=== PATIENT | male | born 1950 | race Native Hawaiian/Other Pacific Islander ===

== ENCOUNTER 2017-10-23 08:17 | Emergency (ER) | payer OTHER, MEDICARE ==
[2017-10-23 08:23] VITALS: O2SAT 99
--- NOTE | 2017-10-23 08:50 | C.PDOC ---
History Of Present Illness 67 y/o male with no hx of HTN, presents to ED for evaluation. He states he "did not feel right" after waking up today at 6am. Pt states he cannot describe his past symptoms but they are currently gone. He states his blood pressure was elevated at 180/90. Denies headache, SOB, visual changes, fever or sweating. Time Seen by Provider: 10/23/17 08:26 Chief Complaint (Nursing): Dizziness/Lightheaded History Per: Patient History/Exam Limitations: no limitations Onset/Duration Of Symptoms: Hrs Current Symptoms Are (Timing): Still Present Activity At Onset Of Symptoms: Lying Associated Symptoms Preceding Syncopal Episode: denies: Lightheadedness, Worse With Standing, Vertigo Seizure Or Post-ictal Symptoms: None Possible Causative Factor(s): denies: Vertigo, Lightheaded W/Standing, Lightheaded W/Change In Head Position, Lightheaded W/Exertion Fall Associated With With Symptoms: No Recent travel outside of the [place]: No - Symptoms Of CVA Associated Symptoms: denies: Impaired Speech, Seizure Activity, New Vision Deficit(Left), New Vision Deficit(Right), Decreased Ability To Walk, New Confusion Recent Head Trauma: No Past Medical History Reviewed: Historical Data, Nursing Documentation, Vital Signs Vital Signs: Last Vital Signs Temp 97.9 F 10/23/17 08:20 Pulse 44 L 10/23/17 10:27 Resp 18 10/23/17 10:27 BP 118/70 10/23/17 10:27 Pulse Ox 99 10/23/17 10:27 - Medical History PMH: HTN, Kidney Stones, Chronic Kidney Disease Surgical History: No Surg Hx Family History: States: Unknown Family Hx - Social History Hx Alcohol Use: Yes Hx Substance Use: No - Immunization History Hx Tetanus Toxoid Vaccination: No Hx Influenza Vaccination: No Hx Pneumococcal Vaccination: No Review Of Systems Constitutional: Positive for: Other (Did not feel right; Elevated blood pressure at 180/90). Negative for: Fever, Chills, Sweats Eyes: Negative for: Vision Change Respiratory: Negative for: Shortness of Breath Neurological: Negative for: Weakness, Numbness, Change in Speech, Confusion, Seizures, Headache Physical Exam - Physical Exam Appears: Well, Non-toxic, No Acute Distress Skin: Normal Color, Warm, Dry Head: Atraumatic, Normacephalic Eye(s): bilateral: Normal Inspection Oral Mucosa: Moist Neck: Supple Chest: Symmetrical, No Tenderness Cardiovascular: Rhythm Regular Respiratory: Normal Breath Sounds, No Rales, No Rhonchi, No Wheezing Gastrointestinal/Abdominal: Soft, No Tenderness, No Distention Extremity: Bilateral: Normal Color And Temperature Neurological/Psych: Oriented x3, Normal Speech, Normal Cognition, Other (No focal deficits) Gait: Steady ED Course And Treatment - Laboratory Results Result Diagrams: 10/23/17 09:07 10/23/17 09:07 Lab Interpretation: Abnormal (BUN 30 Cr 1.6, mild renal insufficiency) ECG: Interpreted By Me ECG Rhythm: Sinus Bradycardia, 1st Degree HB O2 Sat by Pulse Oximetry: 99 (RA) Pulse Ox Interpretation: Normal - Radiology CXR: Viewed By Me, Read By Radiologist CXR Interpretation: Yes: No Acute Disease - Other Rad Chest X-Ray X-Ray: Viewed By Me, Read By Radiologist Interpretation: PROCEDURE: CHEST RADIOGRAPH, 1 VIEW. HISTORY: SOB. COMPARISON: None available. FINDINGS: LUNGS: Clear. PLEURA: No pneumothorax or pleural fluid seen. CARDIOVASCULAR: Normal. OSSEOUS STRUCTURES: No significant abnormalities. VISUALIZED UPPER ABDOMEN: Normal. OTHER FINDINGS: None. IMPRESSION: No active disease. Progress Note: Administered Catapres. Ordered EKG, CXR, blood work and urinalysis. Reevaluation Time: 11:25 Reassessment Condition: Improved (BP 118/70) Disposition Counseled Patient/Family Regarding: Studies Performed, Diagnosis, Need For Followup, Rx Given - Disposition Referrals: Rosa Worthington MD [Staff Provider] - Disposition: HOME/ ROUTINE Disposition Time: 11:28 Condition: IMPROVED Prescriptions: Lisinopril [Zestril] 2.5 mg PO DAILY #30 tab Instructions: Hypertension (ED) Forms: [employer] (Belarusian) - Clinical Impression Clinical Impression: Hypertension, Renal insufficiency, mild - Scribe Statement The provider has reviewed the documentation as recorded by the Anishaibivonne Lama All medical record entries made by the Scribivonne were at my direction and personally dictated by me. I have reviewed the chart and agree that the record accurately reflects my personal performance of the history, physical exam, medical decision making, and the department course for this patient. I have also personally directed, reviewed, and agree with the discharge instructions and disposition.
[2017-10-23 09:12] LABS: BASO % 0.8 % (0.0-2.0); EOS # 0.1 K/uL (0.0-0.7); EOS % 2.3 % (0.0-4.0); HEMOGLOBIN 13.3 g/dL (12.0-18.0); LYMPH # 1.2 K/uL (1.0-4.3); LYMPH % 21.3 % (20.0-40.0); MEAN CELL VOLUME 92.8 fL (80.0-94.0); MEAN CORPUSCULAR HEMOGLOBIN 30.5 pg (27.0-31.0); MEAN CORPUSCULAR HGB CONC 32.8 g/dL (33.0-37.0); MEAN PLATELET VOLUME 7.9 fL (7.2-11.7); MONO # 0.4 K/uL (0.0-0.8); MONO % 6.8 % (0.0-10.0); NEUT # 3.9 K/uL (1.8-7.0); NEUT % 68.8 % (50.0-75.0); RBC 4.38 Mil/uL (4.40-5.90); RED CELL DISTRIBUTION WIDTH 13.8 % (11.5-14.5); WHITE BLOOD COUNT 5.6 K/uL (4.8-10.8)
[2017-10-23 09:28] LABS: URINE BACTERIA RARE (<OCC); URINE BILIRUBIN NEGATIVE (NEGATIVE); URINE BLOOD 1+ (NEGATIVE); URINE CLARITY Clear (Clear); URINE COLOR Yellow (YELLOW); URINE GLUCOSE (UA) NORMAL (Normal); URINE LEUKOCYTE ESTERASE TRACE Leu/uL (Negative); URINE NITRATE NEGATIVE (NEGATIVE); URINE PROTEIN NEGATIVE (NEGATIVE); URINE URIC ACID CRYSTALS OCC /hpf (<OCC); URINE UROBILINOGEN NORMAL mg/dL (0.2-1.0)
[2017-10-23 09:30] LABS: ALB/GLOB RATIO 1.1 (1.0-2.1); ALBUMIN 4.2 g/dL (3.5-5.0); ALT/SGPT 24 U/L (21-72); AST/SGOT 30 U/L (17-59); BLOOD UREA NITROGEN 30 mg/dL (9-20); CALCIUM 9.2 mg/dl (8.6-10.4); GFR AFRICAN-AMERICAN 52; GFR NON-AFRICAN AMERICAN 43
--- NOTE | 2017-10-23 09:47 | RAD ---
PROCEDURE: CHEST RADIOGRAPH, 1 VIEW HISTORY: SOB COMPARISON: None available. FINDINGS: LUNGS: Clear. PLEURA: No pneumothorax or pleural fluid seen. CARDIOVASCULAR: Normal. OSSEOUS STRUCTURES: No significant abnormalities. VISUALIZED UPPER ABDOMEN: Normal. OTHER FINDINGS: None. IMPRESSION: No active disease.
[2017-10-23 10:27] VITALS: PULSE 44; RESP 18
[2017-10-23 11:48] VITALS: BP 121/74; TEMP 97
--- NOTE | 2017-10-25 23:38 | CARD ---
APPROVED REPORT EKG Measurement Heart [id number] <Conclusion> Sinus bradycardia with 1st degree AV block Otherwise normal ECG
== END 2017-10-23 11:48 | disposition home or self-care (01) ==
LOC: C.ER 08:17
DX: I10 Essential (primary) hypertension (principal); N28.9 Disorder of kidney and ureter, unspecified

== ENCOUNTER 2018-01-22 07:40 | Emergency (ER) | payer OTHER, MEDICARE ==
[2018-01-22 07:53] VITALS: BMI 24.1
[2018-01-22 08:01] VITALS: O2SAT 99
--- NOTE | 2018-01-22 08:48 | C.PDOC ---
History Of Present Illness 67 year old male presents to the ED for evaluation of bilateral knee pain ( right greater than left) which began 2-3 weeks ago. He notes the pain increases with use of the areas. He has not taken anything for pain. Patient states he was told a while ago that he has "mild arthritis." Patient denies falls, trauma/ injury to the area. Chief Complaint (Nursing): Lower Extremity Problem/Injury History Per: Patient History/Exam Limitations: no limitations Onset/Duration Of Symptoms: Other (2-3 weeks ) Current Symptoms Are (Timing): Still Present Additional History Per: Patient - Knee Description Of Injury: denies: Fell, Struck With Object, Struck Against Object, Twisted Past Medical History Reviewed: Historical Data, Nursing Documentation, Vital Signs Vital Signs: Last Vital Signs Temp 98.2 F 01/22/18 08:58 Pulse 55 L 01/22/18 08:58 Resp 16 01/22/18 08:58 BP 138/78 01/22/18 08:58 Pulse Ox 99 01/22/18 12:08 - Medical History PMH: HTN, Kidney Stones, Chronic Kidney Disease Surgical History: No Surg Hx Family History: States: Unknown Family Hx - Social History Hx Alcohol Use: Yes Hx Substance Use: No - Immunization History Hx Tetanus Toxoid Vaccination: No Hx Influenza Vaccination: No Hx Pneumococcal Vaccination: No Review Of Systems Musculoskeletal: Positive for: Other (bilateral knee pain ) Physical Exam - Physical Exam Appears: Non-toxic, No Acute Distress Skin: Normal Color, Warm, Dry Head: Atraumatic, Normacephalic Eye(s): bilateral: Normal Inspection Oral Mucosa: Moist Extremity: Normal ROM, No Tenderness, Capillary Refill (less than 2 seconds ), No Deformity, No Swelling, No Other (pain with valgus or varus stretch) Neurological/Psych: Oriented x3, Normal Speech, Normal Cognition Gait: Steady ED Course And Treatment O2 Sat by Pulse Oximetry: 99 (on RA) Pulse Ox Interpretation: Normal - Other Rad knee XR X-Ray: Interpreted by Me, Viewed By Me, Read By Radiologist Interpretation: PROCEDURE: Bilateral Knee Radiographs. HISTORY: b/l knee pain. COMPARISON: None available. TECHNIQUE: Three views of each knee have been submitted for interpretation. FINDINGS: No acute fracture or dislocation is identified bilaterally. Symmetric medial and lateral femorotibial compartment joint space narrowing and cortical sclerosis identified with limited osteophyte development, compatible osteoarthritis. Nearly identical change identified in the bilateral patellofemoral articulations as well. No destructive bony lesion appreciable. Small bilateral suprapatellar bursa effusions are suggested and vascular calcifications are seen in the posterior knee soft tissues as well as distal thigh soft tissues bilaterally. IMPRESSION : Advanced tricompartmental osteoarthritis as discussed above. No acute fracture, subluxation or dislocation. Medical Decision Making Medical Decision Making: Impression: 67 year old male Plan: * bilateral knee XR * reassess and disposition Progress: B/L knee XR ordered and reviewed. On reassessment, patient is resting comfortably, showing no signs of distress and is stable for discharge. Patient is advised to follow up with her PMD, Dr. Worthington, within 1-2 days for further evaluation and/or return to the ED if symptoms persist or worsen. Disposition - Disposition Referrals: Rosa Worthington MD [Staff Provider] - Disposition: HOME/ ROUTINE Disposition Time: 08:30 Condition: GOOD Additional Instructions: Thank you for letting us take care of you today. The emergency medical care you received today was directed at your acute symptoms. If you were prescribed any medication, please fill it and take as directed. It may take several days for your symptoms to resolve. Return to the Emergency Department if your symptoms worsen, do not improve, or if you have any other problems. Please contact your doctor or call one of the physicians/clinics you have been referred to that are listed on the Patient Visit Information form that is included in your discharge packet. Bring any paperwork you were given at discharge with you along with any medications you are taking to your follow up visit. Our treatment cannot replace ongoing medical care by a primary care provider (PCP) outside of the emergency department. Thank you for allowing the [facility] team to be part of your care today. Follow up with your primary doctor in 2 days for re-evaluation and further management. Prescriptions: Ibuprofen [Motrin Tab] 800 mg PO Q6 PRN #20 tab PRN Reason: Pain, Moderate (4-7) Instructions: Osteoarthritis (DC) Forms: [employer] (Slovenian) - Clinical Impression Clinical Impression: Osteoarthritis - Scribe Statement The provider has reviewed the documentation as recorded by the Scribe (Nargis Jones) Provider Attestation: All medical record entries made by the Scribe were at my direction and personally dictated by me. I have reviewed the chart and agree that the record accurately reflects my personal performance of the history, physical exam, medical decision making, and the department course for this patient. I have also personally directed, reviewed, and agree with the discharge instructions and disposition.
[2018-01-22 08:59] VITALS: BP 138/78; PULSE 55; RESP 16; TEMP 98.2
--- NOTE | 2018-01-22 11:12 | RAD ---
PROCEDURE: Bilateral Knee Radiographs. HISTORY: b/l knee pain COMPARISON: None available. TECHNIQUE: Three views of each knee have been submitted for interpretation. FINDINGS: No acute fracture or dislocation is identified bilaterally. Symmetric medial and lateral femorotibial compartment joint space narrowing and cortical sclerosis identified with limited osteophyte development, compatible osteoarthritis. Nearly identical change identified in the bilateral patellofemoral articulations as well. No destructive bony lesion appreciable. Small bilateral suprapatellar bursa effusions are suggested and vascular calcifications are seen in the posterior knee soft tissues as well as distal thigh soft tissues bilaterally. IMPRESSION: Advanced tricompartmental osteoarthritis as discussed above. No acute fracture, subluxation or dislocation.
== END 2018-01-22 08:58 | disposition home or self-care (01) ==
LOC: C.ER 07:40
DX: M17.9 Osteoarthritis of knee, unspecified (principal); I12.9 Hypertensive chronic kidney disease with stage 1 through stage 4 chronic kidney disease, or unspecified chronic kidney disease; N18.9 Chronic kidney disease, unspecified

== ENCOUNTER 2018-09-22 15:27 | Emergency (ER) | payer OTHER ==
[2018-09-22 15:27] VITALS: BMI 24.1
--- NOTE | 2018-09-22 15:48 | C.PDOC ---
History Of Present Illness 68 y/o male with PMH of HTN, 1st degree AV block presents to the ED for evaluation of intermittent dizziness yesterday. Pt states that he had moments of lightheadedness yesterday everytime he took his glasses on and off. Recently got new glasses. No episodes of dizziness/lightheadedness today when he wore his new glasses. States he has not had any water to drink in 2 days. PMD changed his lisinopril dose to half 3 weeks ago secondary to hypotension. Denies vertigo, fevers, chills, chest pain, palpitations, headache, vision changes, SOB, urinary symptoms, back pain, abdominal pain, numbness, paresthesias, weakness, or any other associated complaints. Time Seen by Provider: 09/22/18 15:35 Chief Complaint (Nursing): Dizziness/Lightheaded History Per: Patient History/Exam Limitations: no limitations Past Medical History Reviewed: Historical Data, Nursing Documentation, Vital Signs Vital Signs: Last Vital Signs Temp 98 F 09/22/18 15:30 Pulse 56 L 09/22/18 15:30 Resp 18 09/22/18 15:30 BP 174/76 H 09/22/18 15:30 Pulse Ox 96 09/22/18 15:30 - Medical History PMH: HTN, Kidney Stones, Chronic Kidney Disease Family History: States: Unknown Family Hx - Social History Hx Alcohol Use: No Hx Substance Use: No - Immunization History Hx Tetanus Toxoid Vaccination: No Hx Influenza Vaccination: No Hx Pneumococcal Vaccination: No Review Of Systems Except As Marked, All Systems Reviewed And Found Negative. Constitutional: Negative for: Fever, Chills Eyes: Negative for: Vision Change ENT: Negative for: Ear Pain, Nose Congestion, Throat Pain Cardiovascular: Positive for: Light Headedness. Negative for: Chest Pain, Palpitations, Orthopnea Respiratory: Negative for: Cough, Shortness of Breath, Hemoptysis Gastrointestinal: Negative for: Nausea, Vomiting, Abdominal Pain Genitourinary: Negative for: Dysuria, Frequency, Hematuria, Penile Discharge Musculoskeletal: Negative for: Neck Pain, Shoulder Pain, Back Pain Neurological: Negative for: Weakness, Numbness, Seizures, Headache Physical Exam - Physical Exam Appears: Well, Non-toxic, No Acute Distress Skin: Normal Color, Warm, Dry Head: Atraumatic, Normacephalic, No Tenderness Eye(s): bilateral: Normal Inspection, PERRL, EOMI Ear(s): Bilateral: Normal Nose: Normal Oral Mucosa: Dry Throat: Normal Neck: Normal, Normal ROM Lymphatic: Normal Exam Chest: Symmetrical, No Deformity, No Tenderness Cardiovascular: Rhythm Regular Respiratory: Normal Breath Sounds Gastrointestinal/Abdominal: Normal Exam, Bowel Sounds, Soft, No Tenderness Back: Normal Inspection, No CVA Tenderness Extremity: Normal ROM, No Tenderness, No Pedal Edema, No Calf Tenderness, Capillary Refill (<2s), No Deformity, No Swelling Extremity: Bilateral: Atraumatic, No Pedal Edema, Normal Color And Temperature, Normal ROM Pulses: Left Radial: Normal, Right Radial: Normal Neurological/Psych: Oriented x3, Normal Speech, Normal Cognition, Normal Cranial Nerves, Cerebellar Signs (normal), Normal Motor, Normal Sensation Gait: Steady ED Course And Treatment - Laboratory Results Result Diagrams: 09/22/18 16:27 09/22/18 16:27 ECG: Viewed By Me ECG Rhythm: Sinus Bradycardia, 1st Degree HB ECG Interpretation: No Acute Changes Interpretation Of ECG: Rate 58; Sinus loren; 1st degree AV block; no STEMI or T wave inversions. Compared to 10/23/17, looks similar Rate From EC O2 Sat by Pulse Oximetry: 98 Pulse Ox Interpretation: Normal - Radiology CXR: Viewed By Me (Interpreted by Dr. Vicente) CXR Interpretation: Yes: No Acute Disease - CT Scan/US Head CT Other Rad Studies (CT/US): Read By Radiologist CT/US Interpretation: FINDINGS: HEMORRHAGE: No acute parenchymal, subarachnoid or extra-axial hemorrhage. BRAIN: Suspect minimal chronic periventricular white matter ischemic changes. No evidence of large parenchymal nor extra-axial mass or collection seen on this noncontrast exam.. Moderate generalized volume loss. VENTRICLES: No obstructive hydrocephalus. CALVARIUM: There are no acute calvarial fracture seen. Few small lucency scattered about the inner table of the calvarium few of which probably represent arachnoid granulations and others venous lakes or vascular grooves. PARANASAL SINUSES: Unremarkable as visualized. No significant inflammatory changes. MASTOID AIR CELLS: Unremarkable as visualized. No inflammatory changes. OTHER FINDINGS: None. IMPRESSION: No acute intracranial hemorrhage. Suspect minor chronic periventricular white matter ischemic changes. Moderate generalized volume loss. Medical Decision Making Medical Decision Making: Initial Plan: * CBC, CMP * Mg, Phos * Troponin * Coags * TSH, T3, T4 * UA, culture * Orthostatics * CXR * EKG * Head CT * IVF Patient was asymptomatic on arrival and remained asymptomatic throughout visit. No episodes of dizziness or lightheadedness, headache, vision changes. Ambulated with steady gait to and from bathroom. Patient states he is hungry, requesting discharge home. Will treat patient for UTI and recommend increasing fluids with followup with PMD tomorrow. Diagnostic testing results and plan of care discussed with patient, and strict instructions given regarding prescriptions, importance of follow up, and signs to return to Emergency Department, to include headache, vision changes, dizziness, chest pain, or any other new/worsening symptoms. Patient verbalizes understanding of discussion. Patient A&Ox3, ambulating with steady gait, stable for discharge home. Disposition - Disposition Referrals: Tonio Romo MD [Staff Provider] - Kamran Garcia MD [Staff Provider] - Disposition: HOME/ ROUTINE Disposition Time: 19:00 Condition: GOOD Additional Instructions: Take antibiotics every 12 hours for 7 days Increase fluids Followup with urology within 2 days Followup with eye doctor within 2 days Followup with neurology within 2 days Followup with primary doctor within 2 days Prescriptions: Sulfamethoxazole/Trimethoprim [Bactrim DS 800 mg-160 mg] 1 tab PO Q12H #14 tab Instructions: Urinary Tract Infections in Adults Forms: General Discharge Instructions, [facility] (Urdu), Work Excuse - Clinical Impression Clinical Impression: UTI (urinary tract infection)
[2018-09-22] MEDS ORDERED: Sodium Chloride 0.9% 1,000 ML IV ONE (16:05)
[2018-09-22] MEDS ORDERED: Sodium Chloride 0.9% 1,000 ML ONE (16:14)
[2018-09-22 16:31] LABS: BASO # 0.1 K/uL (0.0-0.2); BASO % 0.7 % (0.0-2.0); EOS # 0.1 K/uL (0.0-0.7); EOS % 1.5 % (0.0-4.0); HEMOGLOBIN 13.1 g/dL (12.0-18.0); LYMPH # 1.5 K/uL (1.0-4.3); LYMPH % 19.6 % (20.0-40.0); MEAN CELL VOLUME 92.6 fL (80.0-94.0); MEAN CORPUSCULAR HEMOGLOBIN 30.4 pg (27.0-31.0); MEAN CORPUSCULAR HGB CONC 32.8 g/dL (33.0-37.0); MEAN PLATELET VOLUME 7.6 fL (7.2-11.7); MONO # 0.5 K/uL (0.0-0.8); MONO % 7.1 % (0.0-10.0); NEUT # 5.4 K/uL (1.8-7.0); NEUT % 71.1 % (50.0-75.0); RBC 4.31 Mil/uL (4.40-5.90); RED CELL DISTRIBUTION WIDTH 13.8 % (11.5-14.5); WHITE BLOOD COUNT 7.6 K/uL (4.8-10.8)
[2018-09-22 16:47] LABS: ALB/GLOB RATIO 1.3 (1.0-2.1); ALBUMIN 4.2 g/dL (3.5-5.0); ALT/SGPT 22 U/L (21-72); AST/SGOT 32 U/L (17-59); BLOOD UREA NITROGEN 27 mg/dL (9-20); CALCIUM 9.1 mg/dl (8.6-10.4); GFR NON-AFRICAN AMERICAN 50; PROTHROMBIN TIME 11.3 SECONDS (9.7-12.2)
--- NOTE | 2018-09-22 17:07 | CT ---
Date of service: 09/22/2018 PROCEDURE: CT HEAD WITHOUT CONTRAST. HISTORY: Lightheadedness COMPARISON: None available. TECHNIQUE: Axial computed tomography images were obtained through the head/brain without intravenous contrast. Radiation dose: Total exam DLP = 967.52 mGy-cm. This CT exam was performed using one or more of the following dose reduction techniques: Automated exposure control, adjustment of the mA and/or kV according to patient size, and/or use of iterative reconstruction technique. FINDINGS: HEMORRHAGE: No acute parenchymal, subarachnoid or extra-axial hemorrhage. BRAIN: Suspect minimal chronic periventricular white matter ischemic changes. No evidence of large parenchymal nor extra-axial mass or collection seen on this noncontrast exam.. Moderate generalized volume loss. VENTRICLES: No obstructive hydrocephalus. CALVARIUM: There are no acute calvarial fracture seen. Few small lucency scattered about the inner table of the calvarium few of which probably represent arachnoid granulations and others venous lakes or vascular grooves. PARANASAL SINUSES: Unremarkable as visualized. No significant inflammatory changes. MASTOID AIR CELLS: Unremarkable as visualized. No inflammatory changes. OTHER FINDINGS: None. IMPRESSION: No acute intracranial hemorrhage. Suspect minor chronic periventricular white matter ischemic changes. Moderate generalized volume loss.
[2018-09-22 17:56] LABS: URINE BACTERIA OCC (<OCC); URINE BILIRUBIN NEGATIVE (NEGATIVE); URINE BLOOD 1+ (NEGATIVE); URINE CLARITY Clear (Clear); URINE COLOR Yellow (YELLOW); URINE GLUCOSE (UA) NORMAL (Normal); URINE LEUKOCYTE ESTERASE 1+ Leu/uL (Negative); URINE PROTEIN NEGATIVE (NEGATIVE); URINE UROBILINOGEN NORMAL mg/dL (0.2-1.0)
[2018-09-22 18:13] VITALS: BP 159/80; PULSE 90; RESP 20; TEMP 98.4
[2018-09-23 01:01] VITALS: O2SAT 98
--- NOTE | 2018-09-23 10:15 | RAD ---
HISTORY: lightheaded COMPARISON: No prior. TECHNIQUE: Chest, one view. FINDINGS: LUNGS: No focal consolidation. Please note that chest x-ray has limited sensitivity for the detection of pulmonary masses. PLEURA: No significant pleural effusion identified. No definite pneumothorax . CARDIOVASCULAR: Heart size appears within normal limits. Faint atherosclerotic calcifications present. OSSEOUS STRUCTURES: Degenerative changes. VISUALIZED UPPER ABDOMEN: Unremarkable. OTHER FINDINGS: None. IMPRESSION: No focal consolidation identified.
--- NOTE | 2018-09-23 12:08 | CARD ---
APPROVED REPORT Date of service: 09/22/2018 EKG Measurement Heart [id number] <Conclusion> Sinus bradycardia with 1st degree AV block Minimal voltage criteria for LVH, may be normal variant Borderline ECG
== END 2018-09-22 19:36 | disposition home or self-care (01) ==
LOC: C.ER 15:27
DX: N39.0 Urinary tract infection, site not specified (principal); I12.9 Hypertensive chronic kidney disease with stage 1 through stage 4 chronic kidney disease, or unspecified chronic kidney disease; N18.9 Chronic kidney disease, unspecified
CPT/HCPCS: 70450; 71045; 80053; 81001; 82948; 83735; 84100; 84439; 84443; 84481; 84484; 85025; 85610; 85730; 87086; 93005; 96360; 99285; J7030